=== PATIENT | female | born 1980 | race Two or more races ===

== ENCOUNTER 2019-07-20 05:02 | Emergency (ER) | payer SELFPAY ==
[~2019-07-20] VITALS: Ht 165.1 cm; Wt 68.0 kg
[2019-07-20 05:09] VITALS: BP 167/77
--- NOTE | 2019-07-20 05:13 | NUR ---
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
--- NOTE | 2019-07-20 05:17 | NUR ---
DR MCNAIR AT THE BED SIDE
--- NOTE | 2019-07-20 05:20 | NUR ---
PT SIGNED A WAIVER FOR CXR. ECG TECH AT THE BED SIDE
--- NOTE | 2019-07-20 05:59 | NUR ---
Patient discharged to home in stable condition. Written and verbal after care instructions given. Patient verbalizes understanding of instruction. Pt will use lift to get bqack home
== END 2019-07-20 06:00 | disposition home or self-care (01) ==
LOC: ER 05:02
DX: F19.10 Other psychoactive substance abuse, uncomplicated (principal)
CPT/HCPCS: 71046